=== PATIENT | female | born 1965 | race American Indian/Alaskan Native ===

== ENCOUNTER 2017-03-11 10:36 | Emergency (ER) | payer OTHER ==
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
[2017-03-11 10:50] VITALS: BP 126/71
--- NOTE | 2017-03-11 12:30 | XRay Report ---
LUMBOSACRAL SPINE, 3 VIEWS: History: Back pain Findings: The vertebral bodies, disk spaces and posterior elements are intact. No compression deformity or malalignment. The SI joints are symmetric and unremarkable. Impression: 1. No evidence for acute injury to the lumbar spine.
--- NOTE | 2017-03-11 12:32 | XRay Report ---
THORACIC SPINE: History: Back pain. The bones are normally mineralized with well preserved vertebral height, alignment and interspace distances. No paraspinal soft tissue widening is noted. IMPRESSION: Normal study.
[2017-03-11] MEDS ORDERED: MOTRIN PO ONE (12:40)
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
== END 2017-03-11 12:50 | disposition home or self-care (01) ==
LOC: ED 10:36
DX: S13.4XXA Sprain of ligaments of cervical spine, initial encounter (principal); V89.2XXA Person injured in unspecified motor-vehicle accident, traffic, initial encounter; Y93.89 Activity, other specified; Y99.9 Unspecified external cause status; Y92.410 Unspecified street and highway as the place of occurrence of the external cause
CPT/HCPCS: 72070; 72100; 72125